=== PATIENT | female | born 1990 | race Caucasian/White ===

== ENCOUNTER 2019-10-23 05:39 | Day surgery (SDC) | payer OTHER ==
[~2019-10-23] VITALS: Ht 167.6 cm; Wt 140.6 kg
[~2019-10-23 05:39] MED LIST: NO HOME MEDS; famotidine 10mg tablet PO ONE; ringers solution, lacted 1,000 ML IV SCH
[2019-10-23 05:45] VITALS: BP 138/75
[2019-10-23] MEDS ORDERED: LIDOcaine 1% (10mg/ml) 2ml vial ONE (06:10)
[2019-10-23 07:05] LABS: BASOPHILS # (AUTO) 0.1 X10'3 (0-0.2); BASOPHILS % (AUTO) 0.6 % (0-1); EOSINOPHILS # (AUTO) 0.5 X10'3 (0-0.9); EOSINOPHILS % (AUTO) 5.3 % (0-6); LYMPHOCYTES # (AUTO) 2.4 X10'3 (1.1-4.8); LYMPHOCYTES % (AUTO) 27.3 % (21-51); MEAN CORPUSCULAR HGB CONC 33.6 g/dL (33.0-36.5); MEAN CORPUSCULAR VOLUME 86.2 FL (78-98); MEAN PLATELET VOLUME 9.4 FL (7.4-10.4); MONOCYTES # (AUTO) 0.8 X10'3 (0-0.9); MONOCYTES % (AUTO) 8.9 % (2-12); NEUTROPHILS # (AUTO) 5.1 X10'3 (1.8-7.7); NEUTROPHILS % (AUTO) 57.9 % (42-75); PRE OP HEMATOCRIT 38.6 % (35.0-45.0); PRE OP PLATELET COUNT 269 X10'3 (140-440); RED BLOOD COUNT 4.48 X10'6 (4.20-5.60); RED CELL DISTRIBUTION WIDTH 14.1 % (11.5-14.5)
[2019-10-23] MEDS ORDERED: sevoflurane 250ml liquid IH ONE (07:31)
[2019-10-23] MEDS ORDERED: fentaNYL/PF 50MCG/1 ML 2ML syringe ONE (07:33)
[2019-10-23] MEDS ORDERED: midazolam 2 mg/2 ml injection ONE (07:34)
[2019-10-23] MEDS ORDERED: rocuronium 10mg/ml inj IV ONE (07:34)
[2019-10-23] MEDS ORDERED: propofol inj 20 ML IV ONE (07:34)
[2019-10-23 07:37] LABS: ALBUMIN 3.7 G/DL (3.4-5.0); ALKALINE PHOSPHATASE 86 IU/L (46-116); BLOOD UREA NITROGEN 15 MG/DL (7-18); CALCIUM 8.9 MG/DL (8.5-10.1); CHLORIDE 108 MMOL/L (99-107); CREATININE 0.79 MG/DL (0.40-0.90); PRE OP ALT 43 U/L (30-65); PRE OP ANION GAP 5 (8-16); PRE OP BILIRUB, TOTAL 0.4 MG/DL (0.0-1.0); PRE OP GLUCOSE 102 MG/DL (70-104); PRE OP SODIUM 140 MMOL/L (135-145); TOTAL CARBON DIOXIDE 26.9 MMOL/L (24-32); TOTAL PROTEIN 7.4 G/DL (6.4-8.2); eGFR 85 ML/MIN
[2019-10-23 07:42] LABS: PRE OP AST 29 U/L (10-37); PRE OP POTASSIUM 4.6 MMOL/L (3.4-5.1)
[2019-10-23 07:46] LABS: HCG SERUM QL NEGATIVE
[2019-10-23 08:00] VITALS: BP 106/68
--- NOTE | 2019-10-23 08:00 | NUR ---
Received from OR via BED, accompanied by Anesthesiologist DR PURDY-- and report given by Anesthesiolgist. PATIENT A&OX4, DENIES PAIN, V/S WNL, NEUROVASCULAR CHECKS INTACT, 20G PIV RUE, SCD ON, PERIPAD WITH SCANT SPOTTING
[2019-10-23 08:10] VITALS: BP 111/67
[2019-10-23 08:20] VITALS: BP 121/65
[2019-10-23] MEDS ORDERED: proCHLORperazine 10 MG/2 ml inj IV PRN (08:25)
[2019-10-23] MEDS ORDERED: ondansetron/PF 4mg/2ml inj IV PRN (08:25)
[2019-10-23] MEDS ORDERED: ringers solution, lacted 1,000 ML IV SCH (08:25)
[2019-10-23] MEDS ORDERED: morphine 4 MG/ML inj SYRINge IV PRN ×2 (08:25)
[2019-10-23] MEDS ORDERED: meperidine/PF 25mg/ml syringe IV PRN ×3 (08:25)
[2019-10-23 08:30] VITALS: BP 119/68
[2019-10-23 08:40] VITALS: BP 117/63
--- NOTE | 2019-10-23 08:40 | NUR ---
PATIENT A&OX4, DENIES PAIN, V/S WNL, NEUROVASCULAR CHECKS INTACT, 20G PIV RUE D/C, SCD OFF, PERIPAD WITH SCANT SPOTTING. I HAVE REVIEWED D/C INSTRUCTIONS WITH PATIENT AND FAMILY AND THEY HAVE VERBALIZED UNDERSTANDING. PATIENT D/C HOME WITH ALL BELONGINGS AND FAMILY GAVE TRANSPORT HOME.
== END 2019-10-23 08:40 | disposition home or self-care (01) ==
LOC: PAS 05:39
PROVIDERS: ATTEND Specialist
DX: T83.32XA Displacement of intrauterine contraceptive device, initial encounter (principal); Z30.433 Encounter for removal and reinsertion of intrauterine contraceptive device; Y83.8 Other surgical procedures as the cause of abnormal reaction of the patient, or of later complication, without mention of misadventure at the time of the procedure; Y92.89 Other specified places as the place of occurrence of the external cause
CPT/HCPCS: 36415; 58300; 58301; 80053; 84703; 85025; 86885; 86900; 86901; A6223; J2001; J2250; J2704; J3010; A4355; A4618; A7000; J7120